=== PATIENT | female | born 2000 | race Two or more races ===

== ENCOUNTER 2018-07-13 01:25 | Emergency (ER) | payer OTHER ==
[2018-07-13 01:39] VITALS: BP 136/81
[2018-07-13] MEDS ORDERED: CIPROFLOXACIN HCL/DEXAMETH OTIC DROP 7.5 ML AS ONE (02:45)
--- NOTE | 2018-07-13 02:47 | ER Document Report ---
HPI - HPI Patient complains to provider of: ear pain Pain Level: 5 Context: Patient is a 17-year-old female presenting to the emergency department complaining of left ear pain. Patient denies any URI symptoms, fever, recent swimming. She also denies any discharge from the left ear. Patient states she took Tylenol at 2200 which did help the pain a little bit. Patient denies chest pain, shortness of breath, nausea, vomiting, dysuria, abdominal pain, chest pain. Past medical history: diabetes Medication: Metformin Allergies: None Surgical history: None Last menstrual period 04/15/2018 patient states her periods are always irregular Patient denies cigarette use, EtOH use, illicit drug use. - CONSTITUTIONAL Constitutional: DENIES: Fever, Chills - EENT EENT: REPORTS: Ear Pain. DENIES: Sore Throat, Eye problems Past Medical History - General Information source: Patient - Social History Smoking Status: Unknown if Ever Smoked Chew tobacco use (# tins/day): No Frequency of alcohol use: None Drug Abuse: None Lives with: Family Family History: Reviewed & Not Pertinent Patient has suicidal ideation: No Patient has homicidal ideation: No Renal/ Medical History: Denies: Hx Peritoneal Dialysis Vertical Provider Document - CONSTITUTIONAL Agree With Documented VS: Yes Notes: GENERAL: Alert, interacts well. No acute distress. HEAD: Normocephalic, atraumatic. EYES: Pupils equal, round, and reactive to light. Extraocular movements intact. ENT: Oral mucosa moist, tongue midline. Left TM's intact, no erythema or bulging. Minor swelling and debris noted to the left canal positive tragal tenderness. No mastoid tenderness or erythema BL. Right TM and canal within normal limits. Pharynx within normal limits. NECK: Full range of motion. Supple. Trachea midline. LUNGS: Clear to auscultation bilaterally, no wheezes, rales, or rhonchi. No respiratory distress. HEART: Regular rate and rhythm. No murmur ABDOMEN: Soft, non-tender. Non-distended. Bowel sounds present in all 4 quadrants. EXTREMITIES: Moves all 4 extremities spontaneously. No edema, normal radial and dorsalis pedis pulses bilaterally. No cyanosis. BACK: no cervical, thoracic, lumbar midline tenderness. No saddle anesthesia, normal distal neurovascular exam. NEUROLOGICAL: Alert and oriented x3. Normal speech. [cranial nerves II through XII grossly intact]. PSYCH: Normal affect, normal mood. SKIN: Warm, dry, normal turgor. No rashes or lesions noted. - INFECTION CONTROL TRAVEL OUTSIDE OF THE [place] IN LAST 30 DAYS: No Course - Re-evaluation Re-evalutation: 07/13/18 02:43 Discussed with patient diagnosis of otitis externa will treat with otic drops. Return precautions given. no signs of mastoiditis at this time. - Vital Signs Vital signs: Temp Pulse Resp BP Pulse Ox 98 F 94 H 18 136/81 H 98 07/13/18 01:38 07/13/18 01:38 07/13/18 01:38 07/13/18 01:38 07/13/18 01:38 Discharge - Discharge Clinical Impression: Otitis externa Qualifiers: Otitis externa type: unspecified type Chronicity: acute Laterality: left Qualified Code(s): H60.502 - Unspecified acute noninfective otitis externa, left ear Condition: Good Disposition: HOME, SELF-CARE Instructions: Use of Ear Drops ([facility]), Otitis Externa ([facility]) Additional Instructions: As we discussed you are seen and treated for an outer ear infection. This ear infection does not require oral antibiotics but antibiotic drops that go directly in the ear. Instill 4 drops into left ear twice daily for the next 7 days. Follow-up with primary care in the next 24-48 hours. Return to the emergency for any worsening symptoms
== END 2018-07-13 03:07 | disposition home or self-care (01) ==
LOC: ER 01:25
DX: H60.502 Unspecified acute noninfective otitis externa, left ear (principal); H92.02 Otalgia, left ear; E11.9 Type 2 diabetes mellitus without complications
CPT/HCPCS: 99282; J3490

== ENCOUNTER 2018-08-29 13:35 | Emergency (ER) | payer OTHER ==
[2018-08-29 13:45] VITALS: BP 114/83
--- NOTE | 2018-08-29 14:36 | ER Document Report ---
ED GI/ - General Chief Complaint: Urinary Problem Stated Complaint: PAIN WITH URINATION Time Seen by Provider: 08/29/18 14:14 Mode of Arrival: Ambulatory Information source: Patient Notes: 18-year-old female presents to ED for complaint of frequency urgency and burning with urination. She states at the end of the urination she has a few drops of blood. She states she is also out of her metformin. She takes metformin 500 mg x2 twice a day. She states she has been out of that for couple days. Patient is alert and oriented respirations regular and unlabored speaking in full sentences. Patient states she is not on control and she last menstrual period was she thinks last week. TRAVEL OUTSIDE OF THE [place] IN LAST 30 DAYS: No - HPI Patient complains to provider of: Other - Burning frequency urgency and blood with urination. No: Vaginal discharge Onset: Yesterday Timing/Duration: Intermittent Quality of pain: Burning Severity at maximum: Moderate Severity in ED: Moderate Pain Level: 3 Vaginal bleeding (Compared to normal period): None Associated symptoms: Urinary hesitancy, Urinary frequency, Other - Hematuria burning with urination Exacerbated by: Other - Urination Relieved by: Denies Similar symptoms previously: Yes Recently seen / treated by doctor: No - Related Data Allergies/Adverse Reactions: No Known Allergies Allergy (Unverified 07/13/18 02:25) Past Medical History - General Information source: Patient - Social History Smoking Status: Never Smoker Cigarette use (# per day): No Chew tobacco use (# tins/day): No Smoking Education Provided: No Frequency of alcohol use: Occasional Drug Abuse: None Lives with: Family Family History: Reviewed & Not Pertinent Patient has suicidal ideation: No Patient has homicidal ideation: No - Past Medical History Cardiac Medical History: Reports: None Pulmonary Medical History: Reports: None EENT Medical History: Reports: None Neurological Medical History: Reports: None Endocrine Medical History: Reports: Hx Diabetes Mellitus Type 2 Renal/ Medical History: Reports: Hx Ovarian Cysts Malignancy Medical History: Reports: None GI Medical History: Reports: None Musculoskeletal Medical History: Reports None Skin Medical History: Reports None Psychiatric Medical History: Reports: None Traumatic Medical History: Reports: None Infectious Medical History: Reports: None Surgical Hx: Negative Past Surgical History: Reports: None - Immunizations Immunizations up to date: Yes Hx Diphtheria, Pertussis, Tetanus Vaccination: Yes Review of Systems - Review of Systems Notes: REVIEW OF SYSTEMS: CONSTITUTIONAL : Denies fever, chills, or sweats. Denies recent illness. EENT: Denies eye, ear, throat, or mouth pain or symptoms. Denies nasal or sinus congestion or discharge. Denies throat, tongue, or mouth swelling or difficulty swallowing. CARDIOVASCULAR: Denies chest pain. Denies palpitations or racing or irregular heart beat. Denies ankle edema. RESPIRATORY: Denies cough, cold, or chest congestion. Denies shortness of breath, difficulty breathing, or wheezing. GASTROINTESTINAL: Denies abdominal pain or distention. Denies nausea, vomiting , or diarrhea. Denies blood in vomitus, stools, or per rectum. Denies black, tarry stools. Denies constipation. GENITOURINARY: Complains with urinary frequency urgency and burning since last night. She states after she finishes urinating he feels like a lot of pain and then she has a little small amount of blood. She states she also is out of her metformin and she takes 500 mg 2 twice a day. She did have a bottle with her and I did write the prescription for her Metformin. FEMALE GENITOURINARY: Denies vaginal bleeding, heavy or abnormal periods, irregular periods. Denies vaginal discharge or odor. MUSCULOSKELETAL: Denies back or neck pain or stiffness. Denies joint pain or swelling. SKIN: Denies rash, lesions or sores. HEMATOLOGIC : Denies easy bruising or bleeding. LYMPHATIC: Denies swollen, enlarged glands. NEUROLOGICAL: Denies confusion or altered mental status. Denies passing out or loss of consciousness. Denies dizziness or lightheadedness. Denies headache. Denies weakness or paralysis or loss of use of either side. Denies problems with gait or speech. Denies sensory loss, numbness, or tingling. Denies seizures. PHYSICAL EXAMINATION: GENERAL: Well-appearing, well-nourished and in no acute distress. HEAD: Atraumatic, normocephalic. EYES: Pupils equal round and reactive to light, extraocular movements intact, conjunctiva are normal. ENT: Nares patent, oropharynx clear without exudates. Moist mucous membranes. NECK: Normal range of motion, supple without lymphadenopathy LUNGS: Breath sounds clear to auscultation bilaterally and equal. No wheezes rales or rhonchi. HEART: Regular rate and rhythm without murmurs ABDOMEN: Soft, nontender, nondistended abdomen. No guarding, no rebound. No masses appreciated. Female : deferred Musculoskeletal: Normal range of motion, no pitting or edema. No cyanosis. NEUROLOGICAL: Cranial nerves grossly intact. Normal speech, normal gait. Normal sensory, motor exams PSYCH: Normal mood, normal affect. SKIN: Warm, Dry, normal turgor, no rashes or lesions noted. PSYCHIATRIC: Denies anxiety or stress. Denies depression, suicidal ideation, or homicidal ideation. ALL OTHER SYSTEMS REVIEWED AND NEGATIVE. Dictation was performed using [employer] voice recognition software Physical Exam - Vital signs Vitals: Temp Pulse Resp BP Pulse Ox 97.6 F 82 16 114/83 96 08/29/18 13:41 08/29/18 13:41 08/29/18 13:41 08/29/18 13:41 08/29/18 13:41 Course - Vital Signs Vital signs: Temp Pulse Resp BP Pulse Ox 97.6 F 82 16 114/83 96 08/29/18 13:41 08/29/18 13:41 08/29/18 13:41 08/29/18 13:41 08/29/18 13:41 - Laboratory Laboratory results interpreted by me: 08/29/18 13:50 Urine Protein 100 H Urine Blood LARGE H Ur Leukocyte Esterase MODERATE H Urine Ascorbic Acid 40 H Discharge - Discharge Clinical Impression: UTI (urinary tract infection) Qualifiers: Urinary tract infection type: acute cystitis Hematuria presence: with hematuria Qualified Code(s): N30.01 - Acute cystitis with hematuria Condition: Stable Disposition: HOME, SELF-CARE Instructions: Acetaminophen, Family Physicians / Practices, Use of Over-The- Counter Ibuprofen ([facility]) Additional Instructions: URINARY TRACT INFECTION: Your evaluation indicates that you have a urinary tract infection. This is due to germs growing in the bladder. This is a common problem. This infection usually responds quickly to antibiotics. Your antibiotic should be taken exactly as prescribed. Drink plenty of fluids -- three to four quarts a day. Occasionally, a bladder anesthetic will be prescribed to help stop the feeling of urgency until the antibiotic has a chance to clear the infection. This may cause your urine to be dark orange. Certain urine infections require a culture. If the doctor obtained a culture, the results will be back in two days. You should call to see if a change in treatment is needed. A repeat urinalysis after you finish treatment is often recommended. The physician will let you know if further testing is required. Call the doctor if you develop fever, chills, flank pain, inability to urinate, or blood in the urine. Glucophage (Metformin hydrochloride) Glucophage is used to treat diabetes. It helps insulin move sugar from your blood stream into your cells. It also slows production of new blood sugar. Glucophage can be combined with another type of diabetes pill or with insulin injections. Glucophage should NOT be used by patients, true insulin-dependent (juvenile) diabetics, or those prone to acidosis (severe kidney disease, alcoholism, severe heart failure). You MUST NOT receive iodine-containing x-ray dye while taking Glucophage. The medicine must be stopped 2 days before the test. Be certain your doctor is aware you are taking Glucophage before undergoing IVP, angiograms, or other x- rays that require IV injection of dye. Glucophage commonly causes decreased appetite. Some patients may have nausea, vomiting, or diarrhea. If the side effects are severe, call your doctor. Glucophage will not cause hypoglycemia (low blood sugar) when used alone. Some patients using diabetes pills or insulin may experience symptoms of hypoglycemia (flushing, sweats, racing heart, lightheadedness). Eat or drink something sweet. Contact your doctor for further instructions. You may need to reduce the dose of insulin or of the other diabetes pill. CEPHALEXIN: The antibiotic you've been prescribed is a member of the cephalosporin class. This type of antibiotic covers a wide variety of infections, including those of the skin, lungs, and urinary tract. It's useful for staph infections. This antibiotic is slightly similar to the penicillin family. In rare cases , a person who is allergic to penicillin will also be allergic to this medication. If you have had a severe allergic reaction to penicillin, and have not taken this antibiotic since that time, notify your doctor. Antibiotics which cover many germs ("broad spectrum" antibiotics) are more likely to cause diarrhea or "yeast" infections. Women prone to vaginal yeast problems may suffer an attack after taking this antibiotic. In infants, oral thrush (white spots "stuck" on the cheek) or yeast diaper rash may result. See your doctor if these problems occur. Call at once if you develop itching, hives , shortness of breath, or lightheadedness. URINARY ANESTHETIC AGENT: You have been given a medication (Pyridium) for urinary tract discomfort. This medicine numbs the lining of the bladder and urethra, resulting in less pain, burning, and urgency. You may take it as needed, according to instructions. When the symptoms resolve, you can stop this medication (be sure to continue any other medications the doctor has given you). This medicine turns the urine a dark orange. It may stain underwear. Occasionally, it can cause nausea. Return for evaluation if there are any unexpected effects, such as itching, hives, or shortness of breath. FOLLOW-UP CARE: If you have been referred to a physician for follow-up care, call the physician s office for an appointment as you were instructed or within the next two days. If you experience worsening or a significant change in your symptoms, notify the physician immediately or return to the Emergency Department at any time for re-evaluation. Prescriptions: Cephalexin Monohydrate [Keflex 500 mg Capsule] 500 mg PO Q6H 5 Days capsule Metformin HCl [Glucophage 500 mg Tablet] 1,000 mg PO BID #120 tablet Phenazopyridine HCl [Pyridium] 100 mg PO TID #15 tablet Referrals: MIKE ROBISON MD [NO LOCAL MD] - Follow up as needed
[2018-08-29 14:41] LABS: APPEARANCE,URINE CLOUDY; BILIRUBIN,URINE NEGATIVE (NEGATIVE); COLOR,URINE RED; GLUCOSE, URINE NEGATIVE (NEGATIVE); KETONES,URINE NEGATIVE (NEGATIVE); LEUKOCYTE ESTERASE,URINE MODERATE (NEGATIVE); NITRITE,URINE NEGATIVE (NEGATIVE); PROTEIN,URINE 100 mg/dL (NEGATIVE); URINE SPECIFIC GRAVITY 1.017; UROBILINOGEN,URINE NEGATIVE mg/dL (<2.0)
[2018-08-29] MEDS ORDERED: PHENAZOPYRIDINE HCL 100 MG TABLET PO ONE (15:19)
[2018-08-29] MEDS ORDERED: CEPHALEXIN 500 MG CAPSULE PO ONE (15:19)
== END 2018-08-29 15:28 | disposition home or self-care (01) ==
LOC: ER 13:35
DX: N30.01 Acute cystitis with hematuria (principal); E11.9 Type 2 diabetes mellitus without complications; T38.3X6A Underdosing of insulin and oral hypoglycemic [antidiabetic] drugs, initial encounter; Z91.128 Patient's intentional underdosing of medication regimen for other reason; Z91.14 Patient's other noncompliance with medication regimen
CPT/HCPCS: 99283; 87086; 82962; 81025; 81001; J3490